=== PATIENT | male | born 1985 | race Two or more races ===

== ENCOUNTER 2016-09-05 03:02 | Emergency (ER) | payer OTHER ==
[2016-09-05 04:48] LABS: ABSOLUTE LYMPHOCYTES (AUTO) 1.1 10^3/uL (0.5-4.7); ABSOLUTE MONOCYTES (AUTO) 1.1 10^3/uL (0.1-1.4); ABSOLUTE NEUT (AUTO) 10.2 10^3/uL (1.7-8.2); BASOPHILS % (AUTO) 0.2 % (0-2); EOSINOPHILS % (AUTO) 0.1 % (0-6); HEMATOCRIT 39.6 % (37.9-51.0); HEMOGLOBIN 13.3 g/dL (13.5-17.0); HGB HCT DIFFERENCE 0.3; LYMPHOCYTES % (AUTO) 8.6 % (13-45); MEAN CORPUSCULAR HEMOGLOBIN 28.5 pg (27.0-33.4); MEAN CORPUSCULAR HGB CONC 33.6 g/dL (32.0-36.0); MEAN CORPUSCULAR VOLUME 85 fl (80-97); MONOCYTES % (AUTO) 8.7 % (3-13); RED BLOOD COUNT 4.67 10^6/uL (4.35-5.55); RED CELL DISTRIBUTION WIDTH 14.4 % (11.5-14.0); SEGMENTED NEUTROPHILS % (AUTO) 82.4 % (42-78); WHITE BLOOD COUNT 12.3 10^3/uL (4.0-10.5)
[2016-09-05 05:03] LABS: ALANINE AMINOTRANSFERASE 36 U/L (21-72); ALBUMIN 3.9 g/dL (3.5-5.0); ALKALINE PHOSPHATASE 57 U/L (38-126); ANION GAP 13 (5-19); ASPARTATE AMINO TRANSFERASE 31 U/L (17-59); BILIRUBIN,DIRECT 0.2 mg/dL (0.0-0.4); BLOOD UREA NITROGEN 20 mg/dL (7-20); CALCIUM 9.3 mg/dL (8.4-10.2); CARBON DIOXIDE 27 mmol/L (22-30); CHLORIDE 102 mmol/L (98-107); CREATININE RESULT 1.06 mg/dL (0.52-1.25); GLUCOSE 117 mg/dL (75-110); POTASSIUM 4.8 mmol/L (3.6-5.0); SODIUM 142.3 mmol/L (137-145)
[2016-09-05 06:03] LABS: AMORPHOUS SEDIMENT,URINE 4+ /HPF; APPEARANCE,URINE TURBID; BILIRUBIN,URINE NEGATIVE (NEGATIVE); GLUCOSE, URINE NEGATIVE (NEGATIVE); KETONES,URINE NEGATIVE (NEGATIVE); LEUKOCYTE ESTERASE,URINE NEGATIVE (NEGATIVE); NITRITE,URINE NEGATIVE (NEGATIVE); PROTEIN,URINE NEGATIVE (NEGATIVE); URINE SPECIFIC GRAVITY 1.032; UROBILINOGEN,URINE NEGATIVE mg/dL (<2.0)
[2016-09-05] MEDS ORDERED: ACETAMINOPHEN 325 MG TABLET PO ONE (07:50)
[2016-09-05] MEDS ORDERED: NORMAL SALINE 1000 ML 1,000 ML IV ONE (07:50)
[2016-09-05] MEDS ORDERED: METRONIDAZOLE 500 MG/NS RTU 100 ML IV ONE (07:51)
--- NOTE | 2016-09-05 10:42 | ER Document Report ---
ED General - General Chief Complaint: Diarrhea Stated Complaint: NAUSEA, SHORTNESS OF BREATH - HPI Patient complains to provider of: diarrhea lower abdominal pain Notes: Patient coming in with diarrhea lower Yamilet pain left lower quadrant fevers nausea ongoing for the past 3 days. Patient states try to have bowel movement as well as has difficulty. Denies any recent antibiotics denies any recent travel denies any new pets but does state he does have a dog at home. - Related Data Allergies/Adverse Reactions: No Known Allergies Allergy (Unverified 09/05/16 03:19) Past Medical History - Social History Smoking Status: Unknown if Ever Smoked Chew tobacco use (# tins/day): No Frequency of alcohol use: None Drug Abuse: None Family History: Reviewed & Not Pertinent Patient has suicidal ideation: No Patient has homicidal ideation: No Renal/ Medical History: Denies: Hx Peritoneal Dialysis Past Surgical History: Reports: Hx Orthopedic Surgery - [facility] Review of Systems - Review of Systems Constitutional: No symptoms reported EENT: No symptoms reported Cardiovascular: No symptoms reported Respiratory: No symptoms reported Gastrointestinal: Abdominal pain, Nausea, Vomiting Genitourinary: No symptoms reported Male Genitourinary: No symptoms reported Musculoskeletal: No symptoms reported Skin: No symptoms reported Hematologic/Lymphatic: No symptoms reported Neurological/Psychological: No symptoms reported -: Yes All other systems reviewed and negative Physical Exam - Vital signs Vitals: Temp Pulse Resp BP Pulse Ox 100.3 F 98 21 H 110/71 100 09/05/16 03:21 09/05/16 03:21 09/05/16 03:21 09/05/16 03:21 09/05/16 03:21 Interpretation: Normal - General General appearance: Appears well, Alert - HEENT Head: Normocephalic, Atraumatic Eyes: Normal Pupils: PERRL - Respiratory Respiratory status: No respiratory distress Chest status: Nontender Breath sounds: Normal Chest palpation: Normal - Cardiovascular Rhythm: Regular Heart sounds: Normal auscultation Murmur: No - Abdominal Inspection: Normal Distension: No distension Bowel sounds: Normal Tenderness: Tender - Left lower quadrant tenderness moderate tenderness voluntary guarding no rebound Organomegaly: No organomegaly - Back Back: Normal, Nontender - Extremities General upper extremity: Normal inspection, Nontender, Normal color, Normal ROM , Normal temperature General lower extremity: Normal inspection, Nontender, Normal color, Normal ROM , Normal temperature, Normal weight bearing. No: Vipul's sign - Neurological Neuro grossly intact: Yes Cognition: Normal Orientation: AAOx4 Nicky Coma Scale Eye Opening: Spontaneous Nicky Coma Scale Verbal: Oriented Nicky Coma Scale Motor: Obeys Commands Alcova Coma Scale Total: 15 Speech: Normal Motor strength normal: LUE, RUE, LLE, RLE Sensory: Normal - Psychological Associated symptoms: Normal affect, Normal mood - Skin Skin Temperature: Warm Skin Moisture: Dry Skin Color: Normal Course - Re-evaluation Re-evalutation: 09/05/16 14:32 Patient stool studies do show signs of C. difficile with CAT scan showing diffuse colitis left lower quadrant of abscess formation. Patient will be started on Flagyl patient is able tolerate by mouth. Patient will be given pain medication patient was educated about C. difficile colitis patient was instructed to return if symptoms worsen. Patient states understanding at this time was to be stable for discharge home. - Vital Signs Vital signs: Temp Pulse Resp BP Pulse Ox 99.1 F 77 18 116/61 99 09/05/16 10:57 09/05/16 10:57 09/05/16 10:57 09/05/16 10:57 09/05/16 10:57 - Laboratory Result Diagrams: 09/05/16 04:24 09/05/16 04:24 Laboratory results interpreted by me: 09/05/16 09/05/16 04:24 04:24 WBC 12.3 H Hgb 13.3 L RDW 14.4 H Seg Neutrophils % 82.4 H Lymphocytes % 8.6 L Absolute Neutrophils 10.2 H Glucose 117 H Discharge - Discharge Clinical Impression: C. difficile colitis Condition: Good Disposition: HOME, SELF-CARE Instructions: C. (Clostridium) Difficile Infection ([facility]), Metronidazole ([facility]), Oral Narcotic Medication ([facility]), Fever ([facility]) Additional Instructions: Take medications as prescribed. Return to ER symptoms worsen. Follow-up with your primary care physician. I would highly recommend sticking to a bland diet for the next few day. He may also follow a brat diet. I would suggest eating yogurt to help reintroduce healthy bacteria to your gut Prescriptions: Metronidazole [Flagyl 500 mg Tablet] 500 mg PO Q6H #40 tablet Ondansetron [Zofran Odt 4 mg Tablet] 1 - 2 tab PO Q4H PRN #30 tab.rapdis PRN Reason: For Nausea/Vomiting Promethazine HCl [Phenergan 25 mg Tablet] 1 - 2 tab PO Q6H PRN #30 tablet PRN Reason: Tramadol HCl [Ultram 50 mg Tablet] 50 mg PO ASDIR PRN #30 tablet PRN Reason: Forms: Return to Work
[2016-09-05 11:19] VITALS: BP 116/61
== END 2016-09-05 10:58 | disposition home or self-care (01) ==
LOC: ER 03:02
DX: A04.7 Enterocolitis due to Clostridium difficile (principal); R19.7 Diarrhea, unspecified; R11.0 Nausea; R06.02 Shortness of breath; R10.32 Left lower quadrant pain
CPT/HCPCS: 99284; 96365; 36415; 87040; 87045; 89055; 87205; 85025; 82272; 80053; 81001; 87493 ×2; 74177; J7030

== ENCOUNTER 2017-01-22 15:08 | Inpatient (IN) | payer OTHER ==
[2017-01-22] MEDS ORDERED: ONDANSETRON HCL INJ/PF 4 MG/2 ML SDV IV ONE (15:50)
--- NOTE | 2017-01-22 15:53 | ER Document Report ---
ED Medical Screen (RME) - General Chief Complaint: Nausea/Vomiting/Diarrhea Stated Complaint: ABDOMINAL PAIN,FEVER,DIARRHEA Time Seen by Provider: 01/22/17 15:50 Notes: Patient states she has had 4 days of fevers up to 103 at home. He has had decreased appetite. No vomiting. He has had increased stool with mucus from his rectum. He also states he has had diffuse abdominal pain. He has been unable to sleep because of the pain. 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 He states he did have C. difficile earlier in the year. He is unsure how he contacted this. But he states he was stationed in the same place that he recently has been back to. He denies any recent antibiotics. TRAVEL OUTSIDE OF THE [place] IN LAST 30 DAYS: No - Related Data Allergies/Adverse Reactions: No Known Allergies Allergy (Verified 01/22/17 15:12) Past Medical History - Social History Frequency of alcohol use: Rare Drug Abuse: None Renal/ Medical History: Denies: Hx Peritoneal Dialysis Past Surgical History: Reports: Hx Orthopedic Surgery - [facility] Physical Exam - Vital signs Vitals: Temp Pulse BP Pulse Ox 99.9 F 92 134/74 H 96 01/22/17 15:14 01/22/17 15:14 01/22/17 15:14 01/22/17 15:14 Course - Vital Signs Vital signs: Temp Pulse Resp BP Pulse Ox 99.9 F 92 134/74 H 96 01/22/17 15:14 01/22/17 15:14 01/22/17 15:14 01/22/17 15:14
[2017-01-22 16:14] LABS: ABSOLUTE LYMPHOCYTES (AUTO) 1.7 10^3/uL (0.5-4.7); ABSOLUTE NEUT (AUTO) 8.6 10^3/uL (1.7-8.2); BASOPHILS % (AUTO) 0.3 % (0-2); EOSINOPHILS % (AUTO) 0.4 % (0-6); HEMATOCRIT 42.3 % (37.9-51.0); HEMOGLOBIN 13.9 g/dL (13.5-17.0); HGB HCT DIFFERENCE -0.6; LYMPHOCYTES % (AUTO) 14.7 % (13-45); MEAN CORPUSCULAR HEMOGLOBIN 29.5 pg (27.0-33.4); MEAN CORPUSCULAR VOLUME 90 fl (80-97); MONOCYTES % (AUTO) 8.8 % (3-13); RED BLOOD COUNT 4.72 10^6/uL (4.35-5.55); RED CELL DISTRIBUTION WIDTH 14.1 % (11.5-14.0); SEGMENTED NEUTROPHILS % (AUTO) 75.8 % (42-78); WHITE BLOOD COUNT 11.3 10^3/uL (4.0-10.5)
[2017-01-22 16:16] LABS: APPEARANCE,URINE CLEAR; BILIRUBIN,URINE NEGATIVE (NEGATIVE); GLUCOSE, URINE NEGATIVE (NEGATIVE); KETONES,URINE NEGATIVE (NEGATIVE); LEUKOCYTE ESTERASE,URINE NEGATIVE (NEGATIVE); NITRITE,URINE NEGATIVE (NEGATIVE); PROTEIN,URINE NEGATIVE (NEGATIVE); URINE SPECIFIC GRAVITY 1.018; UROBILINOGEN,URINE NEGATIVE mg/dL (<2.0)
[2017-01-22 16:33] LABS: ALANINE AMINOTRANSFERASE 49 U/L (21-72); ALBUMIN 3.8 g/dL (3.5-5.0); ALKALINE PHOSPHATASE 56 U/L (38-126); ANION GAP 10 (5-19); ASPARTATE AMINO TRANSFERASE 33 U/L (17-59); BILIRUBIN,DIRECT 0.4 mg/dL (0.0-0.4); BILIRUBIN,TOTAL 0.6 mg/dL (0.2-1.3); BLOOD UREA NITROGEN 16 mg/dL (7-20); CALCIUM 9.1 mg/dL (8.4-10.2); CARBON DIOXIDE 30 mmol/L (22-30); CHLORIDE 100 mmol/L (98-107); CREATININE RESULT 1.19 mg/dL (0.52-1.25); GLUCOSE 89 mg/dL (75-110); LIPASE 95.1 U/L (23-300); POTASSIUM 4.4 mmol/L (3.6-5.0); SODIUM 140.2 mmol/L (137-145); TOTAL PROTEIN 7.1 g/dL (6.3-8.2)
--- NOTE | 2017-01-22 17:14 | RADIOLOGY REPORT (SQ) ---
EXAM DESCRIPTION: CT ABD/PELVIS WITH IV ONLY COMPLETED DATE/TIME: 01/22/2017 4:41 pm REASON FOR STUDY: diffuse abd pain/hx c diff COMPARISON: 09/05/2016 TECHNIQUE: CT scan of the abdomen and pelvis performed using helical scanning technique with dynamic intravenous contrast injection. No oral contrast. Images reviewed with lung, soft tissue, and bone windows. Reconstructed coronal and sagittal MPR images reviewed. Delayed images for evaluation of the urinary system also acquired. All images stored on PACS. All CT scanners at this facility use dose modulation, iterative reconstruction, and/or weight based d osing when appropriate to reduce radiation dose to as low as reasonably achievable (ALARA). [facility]: Dose Right [facility]: CareDose [facility]: Dose Right [facility]: Teradose 4D [facility]: IIIMOBI CONTRAST TYPE AND DOSE: contrast/concentration: Isovue 370.00 mg/ml; Total Contrast Delivered: 86.0 ml; Total Saline Delivered: 69.0 ml RENAL FUNCTION: None required. The patient is less than 50 years old. RADIATION DOSE: Up-to-date CT equipment and radiation dose reduction techniques were employed. CTDIv ol: 5.9 - 8.1 mGy. DLP: 722 mGy-cm.. LIMITATIONS: None. FINDINGS: LOWER CHEST: No significant findings. No nodules or infiltrates. LIVER: Normal size. No masses. No dilated ducts. SPLEEN: Normal size. No focal lesions. PANCREAS: No masses. No significant calcifications. No adjacent inflammation or peripancreatic fluid collections. Pancreatic duct not dilated. GALLBLADDER: No identified stones by CT criteria. No inflammatory changes to suggest cholecystitis. ADRENAL GLANDS: No significant masses or asymmetry. RIGHT KIDNEY AND URETER: No solid masses. No significant calcifications. No hydronephrosis or hyd roureter. LEFT KIDNEY AND URETER: No solid masses. No significant calcifications. No hydronephrosis or hydr oureter. AORTA AND VESSELS: No aneurysm. No dissection. Renal arteries, SMA, celiac without stenosis. RETROPERITONEUM: No retroperitoneal adenopathy, hemorrhage or masses. BOWEL AND PERITONEAL CAVITY: Focal inflammatory change involving the descending colon in the setting of diverticula compatible with diverticulitis. There is a a 19 mm contained gas and fluid collection along the anti mesenteric border consistent with a contained perforation. Small and large bowel loo ps normal no free air. APPENDIX: Normal. PELVIS: No mass. No free fluid. Normal bladder. ABDOMINAL WALL: No masses. No hernias. BONES: No significant or acute findings. OTHER: No other significant finding. IMPRESSION: ACUTE DIVERTICULITIS DESCENDING COLON WITH 19 MM CONTAINED PERFORATION WHICH IS NOT AMEN ABLE TO IMAGE GUIDED DRAINAGE. TECHNICAL DOCUMENTATION: JOB ID: [id number] Quality ID # [id number]: Final reports with documentation of one or more dose reduction techniques (e.g., Au tomated exposure control, adjustment of the mA and/or kV according to patient size, use of iterative reconstruction technique) 2010 [employer]- All Rights Reserved
[2017-01-22] MEDS ORDERED: PIPERACILLIN/TAZOBACTAM 3.375 GM VIAL IV ONE (17:26)
--- NOTE | 2017-01-22 17:29 | ER Document Report ---
ED GI/ - General Chief Complaint: Nausea/Vomiting/Diarrhea Stated Complaint: ABDOMINAL PAIN,FEVER,DIARRHEA Time Seen by Provider: 01/22/17 15:50 Notes: Patient is here complaining of abdominal pain that started in his lower abdomen on Saturday. It has continued over the weekend. He has been nauseated but not vomiting. He has frequent stools normally and has been worked up and told he may have IBS. His stools have not changed with this illness. He has noted fever for the last couple of days. Patient was also diagnosed and treated for C. difficile colitis back in the spring. He has never had any abdominal surgeries. Not currently on any current medications. TRAVEL OUTSIDE OF THE [place] IN LAST 30 DAYS: No - Related Data Allergies/Adverse Reactions: No Known Allergies Allergy (Verified 01/22/17 15:12) Past Medical History - Social History Smoking Status: Former Smoker Frequency of alcohol use: Rare Drug Abuse: None Family History: Reviewed & Not Pertinent Patient has suicidal ideation: No Patient has homicidal ideation: No GI Medical History: Reports: Hx Irritable Bowel - Possible Past Surgical History: Reports: Hx Orthopedic Surgery - [facility] Review of Systems - Review of Systems Notes: REVIEW OF SYSTEMS: CONSTITUTIONAL : Denies fever. EENT: Denies eye, ear, nose or mouth or throat pain or other symptoms. CARDIOVASCULAR: Denies chest pain. RESPIRATORY: Denies cough, chest congestion, or shortness of breath. GASTROINTESTINAL: See HPI. GENITOURINARY: Denies difficulty or painful urinating, urinary frequency, blood in urine. MUSCULOSKELETAL: Denies back or neck pain. Denies joint pain or swelling. SKIN: Denies rash or skin lesions. NEUROLOGICAL: Denies LOC or altered mental status. Denies headache. Denies sensory loss or motor deficits. ALL OTHER SYSTEMS REVIEWED AND NEGATIVE. Physical Exam - Vital signs Vitals: Temp Pulse BP Pulse Ox 99.9 F 92 134/74 H 96 01/22/17 15:14 01/22/17 15:14 01/22/17 15:14 01/22/17 15:14 Interpretation: Febrile - Low-grade - Notes Notes: PHYSICAL EXAMINATION: GENERAL: Well-appearing, in no acute distress. Vital signs are normal except for very slight 1 fever. HEAD: Atraumatic, normocephalic. NECK: Normal range of motion, supple. LUNGS: Breath sounds clear and equal bilaterally. HEART: Regular rate and rhythm without murmurs. ABDOMEN: Soft, tender in left lower quadrant, but none in the right lower quadrant. Slight guarding but no rebound present. No masses felt. Bowel sounds are heard.. BACK: No tenderness throughout entire back. EXTREMITIES: Normal range of motion without pain. NEUROLOGICAL: Normal speech, normal gait. Normal sensory, motor, and reflex exams. Awake, alert, and oriented x3. Cranial nerves normal. SKIN: Warm, dry, no rashes. Course - Re-evaluation Re-evalutation: 01/22/17 17:[address] Lyles, hospitalist certified pest control technician, and he will admit the patient. - Vital Signs Vital signs: Temp Pulse Resp BP Pulse Ox 98.7 F 86 18 116/67 98 01/22/17 17:00 01/22/17 17:00 01/22/17 17:00 01/22/17 17:00 01/22/17 17:00 - Laboratory Result Diagrams: 01/22/17 15:50 01/22/17 15:50 Laboratory results interpreted by me: 01/22/17 01/22/17 15:50 15:50 WBC 11.3 H RDW 14.1 H Absolute Neutrophils 8.6 H Urine Ascorbic Acid 40 H - Diagnostic Test Radiology reviewed: Image reviewed, Reports reviewed - CT scan of the abdomen shows diverticulitis of the descending colon with a 19 mm area of contained perforation. Discharge - Discharge Clinical Impression: Diverticulitis large intestine w/o perforation or abscess w/bleeding Condition: Stable Disposition: ADMITTED INPATIENT Admitting Provider: Hospitalist Unit Admitted: [facility]
[2017-01-22] MEDS ORDERED: MORPHINE SULFATE 10 MG/ML INJ IV ONE (17:50)
--- NOTE | 2017-01-22 18:06 | PDOC H&P ---
History of Present Illness Patient complains of: Lower abdominal pain History of Present Illness: OSVALDO RUELAS is a 31 year old male Patient is here complaining of abdominal pain that started in his lower abdomen on Saturday. It has continued over the weekend. He has been nauseated but not vomiting. He has frequent stools normally and has been worked up and told he may have IBS. His stools have not changed with this illness. He has noted fever for the last couple of days. Patient was also diagnosed and treated for C. difficilis colitis back in the spring in September treated with oral Flagyl and resolution of the symptoms. He has never had any abdominal surgeries. Not currently on any current medications. A CT scan A/P has been done today and it is significant for localized perforated sigmoid diverticulitits. Past Medical History Infectious History Note: C. Difficilis colitis September 2016 Past Surgical History Past Surgical History: Left knee arthroscopy Past Surgical History: Reports: Orthopedic Surgery - [facility] Social History Smoking Status: Former Smoker Family History Family History: Reviewed & Not Pertinent Parental Family History Reviewed: Yes - none Children Family History Reviewed: No Sibling(s) Family History Reviewed.: Yes - none Medication/Allergy Home Medications: Metronidazole [Flagyl 500 mg Tablet] 500 mg PO Q6H #40 tablet 09/05/16 Ondansetron [Zofran Odt 4 mg Tablet] 1 - 2 tab PO Q4H PRN #30 tab.rapdis Promethazine HCl [Phenergan 25 mg Tablet] 1 - 2 tab PO Q6H PRN #30 tablet Tramadol HCl [Ultram 50 mg Tablet] 50 mg PO ASDIR PRN #30 tablet 09/05/16 Allergies/Adverse Reactions: No Known Allergies Allergy (Verified 01/22/17 15:12) Physical Exam Vital Signs: Temp Pulse Resp BP Pulse Ox 98.7 F 86 18 116/67 98 01/22/17 17:00 01/22/17 17:00 01/22/17 17:00 01/22/17 17:00 01/22/17 17:00 Intake & Output 01/21/17 01/22/17 01/23/17 06:59 06:59 06:59 Weight 80 kg Results Laboratory Results: 01/22/17 15:50 01/22/17 15:50 01/22/17 01/22/1717 15:50 15:50 15:50 WBC 11.3 H RBC 4.72 Hgb 13.9 Hct 42.3 MCV 90 MCH 29.5 MCHC 33.0 RDW 14.1 H Plt Count 303 Seg Neutrophils % 75.8 Lymphocytes % 14.7 Monocytes % 8.8 Eosinophils % 0.4 Basophils % 0.3 Absolute Neutrophils 8.6 H Absolute Lymphocytes 1.7 Absolute Monocytes 1.0 Absolute Eosinophils 0.0 Absolute Basophils 0.0 Sodium 140.2 Potassium 4.4 Chloride 100 Carbon Dioxide 30 Anion Gap 10 BUN 16 Creatinine 1.19 Est GFR ( Amer) > 60 Est GFR (Non-Af Amer) > 60 Glucose 89 Calcium 9.1 Total Bilirubin 0.6 AST 33 ALT 49 Alkaline Phosphatase 56 Total Protein 7.1 Albumin 3.8 Lipase 95.1 Urine Color YELLOW Urine Appearance CLEAR Urine pH 6.0 Ur Specific [place] 1.018 Urine Protein NEGATIVE Urine Glucose (UA) NEGATIVE Urine Ketones NEGATIVE Urine Blood NEGATIVE Urine Nitrite NEGATIVE Ur Leukocyte Esterase NEGATIVE Urine WBC (Auto) 1 Impressions: Abdomen/Pelvis CT 01/22/17 15:50 IMPRESSION: ACUTE DIVERTICULITIS DESCENDING COLON WITH 19 MM CONTAINED PERFORATION WHICH IS NOT AMENABLE TO IMAGE GUIDED DRAINAGE. Assessment & Plan - Plan Summary Plan Summary: A/ Abdominal pain, fever x [address] scan abdomen and pelvis significant for localized, contained signoid diverticulitis with 1.9 cm abscess Hx of chronic diarrhea since [place] from [place] (@ 20 BM/day) P/ Admit NPO IVF NS IV Abx (Zosyn 3.375 gr IV q6) Stools for Cx, O&P. C. Difficilis toxin, WBC Patient will need to undergo colonoscopy in 3 months
[2017-01-22] MEDS: NORMAL SALINE 1000 ML 1,000 ML IV PRN (18:16)
[2017-01-22] MEDS ORDERED: NORMAL SALINE 1000 ML 1,000 ML IV PRN (23:29)
[2017-01-23] MEDS: MORPHINE SULFATE 10 MG/ML INJ INJ PRN ×3 (00:14→08:31)
[2017-01-23] MEDS: METRONIDAZOLE 500 MG/NS RTU 100 ML IV SCH ×5 (00:14→23:22)
[2017-01-23] MEDS ORDERED: PIPERACILLIN/TAZOBACTAM 3.375 GM VIAL IV ONE (02:06)
[2017-01-23] MEDS: PIPERACILLIN/TAZOBACTAM 3.375 GM VIAL IV SCH ×2 (02:28→06:51)
[2017-01-23] MEDS ORDERED: VANCOMYCIN HCL INJ 500 MG VIAL ONE (02:31)
[2017-01-23] MEDS: VANCOMYCIN HCL INJ 500 MG VIAL PO SCH ×3 (02:43→17:44)
[2017-01-23 05:18] LABS: HEMATOCRIT 35.9 % (37.9-51.0); HGB HCT DIFFERENCE 0.1; MEAN CORPUSCULAR HEMOGLOBIN 29.8 pg (27.0-33.4); MEAN CORPUSCULAR HGB CONC 33.5 g/dL (32.0-36.0); MEAN CORPUSCULAR VOLUME 89 fl (80-97); RED BLOOD COUNT 4.04 10^6/uL (4.35-5.55); RED CELL DISTRIBUTION WIDTH 14.3 % (11.5-14.0); WHITE BLOOD COUNT 8.7 10^3/uL (4.0-10.5)
--- NOTE | 2017-01-23 10:08 | PDOC PROGRESS REPORT ---
Subjective Progress Note for:: 01/23/17 Subjective:: No diarrhea. Feels a little better but still having left lower quadrant abdominal pain. Physical Exam Vital Signs: Temp Pulse Resp BP Pulse Ox 98.4 F 71 18 117/65 98 01/23/17 07:52 01/23/17 07:52 01/23/17 07:52 01/23/17 07:52 01/23/17 07:52 Intake & Output 01/22/17 01/23/17 01/24/17 06:59 06:59 06:59 Intake Total 1850 Output Total 401 Balance 1449 Weight 81.1 kg General appearance: PRESENT: no acute distress, cooperative Respiratory exam: PRESENT: clear to auscultation kindra Cardiovascular exam: PRESENT: RRR GI/Abdominal exam: PRESENT: other - Soft, nondistended, focal tenderness to palpation the left lower quadrant without peritoneal signs. Mild diffuse abdominal tenderness. Results Laboratory Results: 01/23/17 04:24 01/23/17 04:24 WBC 8.7 RBC 4.04 L Hgb 12.0 L Hct 35.9 L MCV 89 MCH 29.8 MCHC 33.5 RDW 14.3 H Plt Count 248 Impressions: Abdomen/Pelvis CT 01/22/17 15:50 IMPRESSION: ACUTE DIVERTICULITIS DESCENDING COLON WITH 19 MM CONTAINED PERFORATION WHICH IS NOT AMENABLE TO IMAGE GUIDED DRAINAGE. Assessment & Plan - Diagnosis (1) Diverticulitis Qualifiers: Diverticulitis site: large intestine Diverticulitis complication: with perforation Is this a current diagnosis for this admission?: Yes Plan: Diverticulitis with a contained perforation. Responding to antibiotics. Patient unfortunately has a history of C. difficile colitis and his C. difficile toxin is positive. Patient is on p.o. vancomycin and IV Flagyl and IV Zosyn. Will ask gastroenterology consult for their input. Patient has chronic diarrhea for multiple years and uncertain whether he has had a complete gastroenterology workup for this problem. Hopefully his diverticulitis will improve with antibiotics. In light of the complicated nature of his diverticulitis he would benefit from a semi-elective surgery even if he does have improvement. However would like complete gastroenterology workup and clearance of his C. difficile colitis prior to his semi-elective partial colon resection. Keep at bowel rest until tenderness is markedly improved. Encourage ambulation.
[2017-01-23] MEDS: NORMAL SALINE 1000 ML 1,000 ML IV PRN ×2 (10:57→20:57)
[2017-01-23] MEDS: ENOXAPARIN SODIUM INJ 40 MG/0.4 ML DISP.SYRIN SUBCUT SCH (10:57)
[2017-01-23] MEDS: FAMOTIDINE INJ/PF 20 MG/2 ML SDV IV SCH ×2 (10:57→17:44)
[2017-01-23] MEDS: KETOROLAC TROMETHAMINE INJ/PF 30 MG/1 ML SDV IV PRN ×2 (10:57→21:13)
--- NOTE | 2017-01-23 11:10 | PDOC CONSULTATION ---
Consultation Consult Date: 01/23/17 Attending physician:: NICCI DELATORRE Consult reason:: Acute diverticulitis with contained perforation as documented on CT scan. C. difficile colitis History of Present Illness Admission Date/PCP: 01/22/17 18:12 History of Present Illness: Patient has been admitted under the surgical service. Patient had presented with left lower quadrant pain to the emergency room. On CT scan was noted to have a contained perforation in the area of the sigmoid. He does have C. difficile colitis. GI consultation is provided with respect to further treatment. Patient this point is not a candidate for colonoscopy due to his perforation. Dr. Shaffer has seen the patient and feels that elective surgery may be of benefit. However with the C. difficile colitis immediate surgery does not appear to be imminent. Patient is currently on oral vancomycin along with IV Flagyl patient is also on IV Zosyn for the treatment of the diverticulitis to cover gram-negative organisms. Current stool sample is positive for C. difficile. At this point treatment should continue for at least 21 days. In total at some point he may need surgery with respect to his vancomycin he can be on 125 mg p.o. 4 times daily, with respect to his IV Flagyl 500 mg IV 3 times daily. He should resolve his C. difficile; the reason for the extended treatment is to treat C. difficile spores which is the primary method of reproduction however if he needs surgery prior to that he should proceed. No colonoscopy can be done at this point. If the current regimen further treatment of C. difficile does not resolve the issue, then perhaps the use of Dificid can be attempted. Past Surgical History Past Surgical History: Reports: Orthopedic Surgery - [facility] Social History Smoking Status: Former Smoker Number of Years Smokin Frequency of Alcohol Use: Occasional Hx Recreational Drug Use: No Drugs: Other Hx Prescription Drug Abuse: No - Advance Directive Resuscitation Status: Full Code Family History Family History: Reviewed & Not Pertinent Parental Family History Reviewed: Yes Children Family History Reviewed: Unknown Sibling(s) Family History Reviewed.: Unknown Medication/Allergy Home Medications: No Home Medications 01/22/17 Allergies/Adverse Reactions: No Known Allergies Allergy (Verified 01/22/17 15:12) Review of Systems Constitutional: ABSENT: fever(s), headache(s), night sweats, weakness Eyes: ABSENT: visual disturbances Ears: ABSENT: hearing changes Nose, Mouth, and Throat: ABSENT: mouth pain, sore throat Cardiovascular: ABSENT: chest pain, edema, orthropnea, palpitations Respiratory: ABSENT: dyspnea, hemoptysis Gastrointestinal: PRESENT: abdominal pain, diarrhea. ABSENT: heartburn, hematemesis, hematochezia Genitourinary: ABSENT: dysuria, hematuria Musculoskeletal: ABSENT: deformity, joint swelling Integumentary: ABSENT: lesions, pruritus Neurological: ABSENT: syncope, tingling, tremor(s), vertigo Psychiatric: ABSENT: hallucinations Endocrine: ABSENT: polydipsia, polyphagia, polyuria Hematologic/Lymphatic: ABSENT: easy bruising Allergic/Immunologic: ABSENT: seasonal rhinorrhea Physical Exam Vital Signs: Temp Pulse Resp BP Pulse Ox 98.4 F 71 18 117/65 98 01/23/17 07:52 01/23/17 07:52 01/23/17 07:52 01/23/17 07:52 01/23/17 07:52 Intake & Output 01/22/17 01/23/17 01/24/17 06:59 06:59 06:59 Intake Total 1850 Output Total 401 Balance 1449 Weight 81.1 kg General appearance: PRESENT: no acute distress, well-developed, well-nourished Head exam: PRESENT: atraumatic, normocephalic Eye exam: PRESENT: EOMI, PERRLA. ABSENT: nystagmus, periorbital swelling, scleral icterus Mouth exam: PRESENT: moist, neck supple Throat exam: ABSENT: tonsillar exudate, tonsillogmegaly Neck exam: ABSENT: meningismus, tenderness, thyromegaly Respiratory exam: PRESENT: symmetrical, unlabored. ABSENT: tachypnea, wheezes Cardiovascular exam: PRESENT: RRR, +S1, +S2 Pulses: PRESENT: normal carotid pulses GI/Abdominal exam: PRESENT: soft, tenderness. ABSENT: Ray's sign Extremities exam: ABSENT: joint swelling Neurological exam: PRESENT: oriented to time, oriented to situation, reflexes normal, CN II-XII grossly intact Skin exam: PRESENT: normal color. ABSENT: mottled, pallor, petechiae, urticaria , vesicles Results Laboratory Results: 01/23/17 04:24 01/23/17 04:24 WBC 8.7 RBC 4.04 L Hgb 12.0 L Hct 35.9 L MCV 89 MCH 29.8 MCHC 33.5 RDW 14.3 H Plt Count 248 Impressions: Abdomen/Pelvis CT 01/22/17 15:50 IMPRESSION: ACUTE DIVERTICULITIS DESCENDING COLON WITH 19 MM CONTAINED PERFORATION WHICH IS NOT AMENABLE TO IMAGE GUIDED DRAINAGE. Assessment & Plan - Diagnosis (1) C. difficile colitis Plan: Treatment as noted. Combination of both oral vancomycin and IV Flagyl is suitable for this patient. However the typical treatment is between 14 and 21 days. At some point he will clear his C. difficile toxin. The length of treatment however is to treat gym and eating sports to reduce the risk of recurrent infection. As soon as he is cleared he can basically remain on the antibiotics but proceed for surgery if that is felt to be necessary. Patient cannot undergo colonoscopy at this point in time. Alternative treatment including Dificid may be attempted if there is no resolution. Patient can remain on the surgical service. (2) Diverticulitis large intestine w/o perforation or abscess w/bleeding Plan: Dr. Shaffer feels strongly that surgery may be of benefit to the patient. Check his stools in 2-3 days to make sure his C. difficile is cleared. Patient can then be taken to surgery and then resume treatment to complete treatment of 21 days. However the alternative is to wait for completion of treatment and then taken to surgery. However surgery was determined that. - Time Time Spent: 50 to 70 Minutes
[2017-01-23] MEDS ORDERED: PIPERACILLIN SODIUM/TAZOBACTAM 3.375 GM in NORMAL SALINE 100 ML IV ONE (13:00)
[2017-01-23] MEDS: PIPERACILLIN SODIUM/TAZOBACTAM 3.375 GM in NORMAL SALINE 100 ML IV SCH (17:46)
[2017-01-24] MEDS: PIPERACILLIN SODIUM/TAZOBACTAM 3.375 GM in NORMAL SALINE 100 ML IV SCH ×5 (00:43→23:31)
[2017-01-24] MEDS: VANCOMYCIN HCL INJ 500 MG VIAL PO SCH ×3 (01:05→18:27)
[2017-01-24 04:51] LABS: HEMATOCRIT 33.7 % (37.9-51.0); HEMOGLOBIN 11.5 g/dL (13.5-17.0); HGB HCT DIFFERENCE 0.8; MEAN CORPUSCULAR HEMOGLOBIN 29.9 pg (27.0-33.4); MEAN CORPUSCULAR VOLUME 88 fl (80-97); RED BLOOD COUNT 3.83 10^6/uL (4.35-5.55); RED CELL DISTRIBUTION WIDTH 14.5 % (11.5-14.0); WHITE BLOOD COUNT 5.5 10^3/uL (4.0-10.5)
[2017-01-24] MEDS: METRONIDAZOLE 500 MG/NS RTU 100 ML IV SCH ×3 (05:42→18:27)
[2017-01-24] MEDS: ENOXAPARIN SODIUM INJ 40 MG/0.4 ML DISP.SYRIN SUBCUT SCH (10:32)
[2017-01-24] MEDS: FAMOTIDINE INJ/PF 20 MG/2 ML SDV IV SCH ×2 (10:32→18:27)
--- NOTE | 2017-01-24 13:28 | PDOC PROGRESS REPORT ---
Subjective Progress Note for:: 01/24/17 Subjective:: He is without complaints at this time. Has not had any diarrhea. Has minimal pain in the left lower quadrant. Physical Exam Vital Signs: Temp Pulse Resp BP Pulse Ox 98.3 F 67 18 122/72 99 01/24/17 11:50 01/24/17 11:50 01/24/17 11:50 01/24/17 11:50 01/24/17 11:50 Intake & Output 01/23/17 01/24/17 01/25/17 06:59 06:59 06:59 Intake Total 1850 1950 Output Total 401 Balance 1449 1950 Weight 81.1 kg 83.7 kg General appearance: PRESENT: no acute distress GI/Abdominal exam: PRESENT: normal bowel sounds, soft, tenderness - Mild tenderness in the left lower quadrant, without guarding or rebound.. ABSENT: distended, guarding, mass, rebound, rigid Results Laboratory Results: 01/24/17 04:18 01/24/17 04:18 WBC 5.5 RBC 3.83 L Hgb 11.5 L Hct 33.7 L MCV 88 MCH 29.9 MCHC 34.0 RDW 14.5 H Plt Count 261 Impressions: Abdomen/Pelvis CT 01/22/17 15:50 IMPRESSION: ACUTE DIVERTICULITIS DESCENDING COLON WITH 19 MM CONTAINED PERFORATION WHICH IS NOT AMENABLE TO IMAGE GUIDED DRAINAGE. Assessment & Plan - Diagnosis (1) Diverticulitis Qualifiers: Diverticulitis site: large intestine Diverticulitis complication: with perforation Is this a current diagnosis for this admission?: Yes - Plan Summary Plan Summary: Start the patient on clear liquid diet, continue IV antibiotics. Had Long discussion with the patient regarding need for colonoscopy in 4-6 weeks post discharge. Will then need an elective sigmoid colectomy.
--- NOTE | 2017-01-24 14:44 | PDOC PROGRESS REPORT ---
Subjective Progress Note for:: 01/24/17 Subjective:: Patient did well overnight. He is having less abdominal pain. Surgery has seen him. 3 separate physicians from surgery have seen him. There seems to be a consensus that he will need to be treated for his C. difficile and completed treatment Proceed with colonoscopy at some point and then perhaps elective colectomy at that point in time. Patient denies any bleeding. He has no leukocytosis. Physical Exam Vital Signs: Temp Pulse Resp BP Pulse Ox 98.3 F 67 18 122/72 99 01/24/17 11:50 01/24/17 11:50 01/24/17 11:50 01/24/17 11:50 01/24/17 11:50 Intake & Output 01/23/17 01/24/17 01/25/17 06:59 06:59 06:59 Intake Total 1850 1950 Output Total 401 Balance 1449 1950 Weight 81.1 kg 83.7 kg General appearance: PRESENT: no acute distress, well-developed, well-nourished Head exam: PRESENT: atraumatic, normocephalic Eye exam: PRESENT: EOMI, PERRLA. ABSENT: nystagmus, periorbital swelling, scleral icterus Mouth exam: PRESENT: moist Throat exam: ABSENT: tonsillar exudate, tonsillogmegaly Neck exam: ABSENT: meningismus, tenderness, thyromegaly Respiratory exam: PRESENT: symmetrical, unlabored. ABSENT: tachypnea, wheezes Cardiovascular exam: PRESENT: RRR, +S1, +S2 Pulses: PRESENT: normal carotid pulses GI/Abdominal exam: PRESENT: soft. ABSENT: Ray's sign, rebound, rigid, tenderness Extremities exam: ABSENT: joint swelling Neurological exam: PRESENT: oriented to time, oriented to situation, CN II-XII grossly intact Psychiatric exam: PRESENT: appropriate affect Skin exam: PRESENT: normal color. ABSENT: mottled, pallor, petechiae, urticaria , vesicles Results Laboratory Results: 01/24/17 04:18 01/24/17 04:18 WBC 5.5 RBC 3.83 L Hgb 11.5 L Hct 33.7 L MCV 88 MCH 29.9 MCHC 34.0 RDW 14.5 H Plt Count 261 Impressions: Abdomen/Pelvis CT 01/22/17 15:50 IMPRESSION: ACUTE DIVERTICULITIS DESCENDING COLON WITH 19 MM CONTAINED PERFORATION WHICH IS NOT AMENABLE TO IMAGE GUIDED DRAINAGE. Assessment & Plan - Diagnosis (1) C. difficile colitis Plan: Complete treatment of C. difficile with oral vancomycin and once patient is able to to be advanced constriction to oral Flagyl as well for a three-week completion of therapy (2) Diverticulitis large intestine w/o perforation or abscess w/bleeding Plan: Surgery seems to indicate that they do not want to intervene at this point in time. Patient would certainly need a colonoscopy but it would have to be in at least 6 weeks. He should complete outpatient antibiotics in the meanwhile. Patient is aware that there is certainly a high risk of bleeding and perforation and therefore surgery will need to be coordinated fairly quickly following completion of colonoscopy. - Time Time Spent with patient: 25-34 minutes
[2017-01-24] MEDS: NORMAL SALINE 1000 ML 1,000 ML IV PRN (15:32)
[2017-01-24] MEDS: KETOROLAC TROMETHAMINE INJ/PF 30 MG/1 ML SDV IV PRN ×2 (15:42→23:55)
[2017-01-24] MEDS: ONDANSETRON HCL INJ/PF 4 MG/2 ML SDV IV PRN (23:55)
[2017-01-25] MEDS: METRONIDAZOLE 500 MG/NS RTU 100 ML IV SCH ×5 (00:12→23:09)
[2017-01-25] MEDS: VANCOMYCIN HCL INJ 500 MG VIAL PO SCH ×3 (01:07→18:30)
[2017-01-25 05:02] LABS: HEMATOCRIT 34.2 % (37.9-51.0); HEMOGLOBIN 11.5 g/dL (13.5-17.0); HGB HCT DIFFERENCE 0.3; MEAN CORPUSCULAR HEMOGLOBIN 29.8 pg (27.0-33.4); MEAN CORPUSCULAR HGB CONC 33.6 g/dL (32.0-36.0); MEAN CORPUSCULAR VOLUME 89 fl (80-97); RED BLOOD COUNT 3.85 10^6/uL (4.35-5.55); RED CELL DISTRIBUTION WIDTH 14.3 % (11.5-14.0); WHITE BLOOD COUNT 4.2 10^3/uL (4.0-10.5)
[2017-01-25] MEDS: KETOROLAC TROMETHAMINE INJ/PF 30 MG/1 ML SDV IV PRN ×2 (06:43→12:28)
[2017-01-25] MEDS: PIPERACILLIN SODIUM/TAZOBACTAM 3.375 GM in NORMAL SALINE 100 ML IV SCH ×4 (06:43→23:11)
[2017-01-25] MEDS: ONDANSETRON HCL INJ/PF 4 MG/2 ML SDV IV PRN ×2 (06:43→12:28)
[2017-01-25] MEDS: FAMOTIDINE INJ/PF 20 MG/2 ML SDV IV SCH ×2 (09:05→18:29)
[2017-01-25] MEDS: ENOXAPARIN SODIUM INJ 40 MG/0.4 ML DISP.SYRIN SUBCUT SCH (09:05)
--- NOTE | 2017-01-25 22:10 | PDOC PROGRESS REPORT ---
Subjective Progress Note for:: 01/25/17 Subjective:: Patient is without complaints. Had good bowel movements earlier today Physical Exam Vital Signs: Temp Pulse Resp BP Pulse Ox 97.7 F 63 16 120/76 98 01/25/17 20:00 01/25/17 20:00 01/25/17 20:00 01/25/17 20:00 01/25/17 20:00 Intake & Output 01/24/17 01/25/17 01/26/17 06:59 06:59 06:59 Intake Total 1950 2710 3153 Output Total 300 Balance 1950 2710 2853 Weight 83.7 kg 183 kg General appearance: PRESENT: no acute distress, cooperative GI/Abdominal exam: PRESENT: normal bowel sounds, soft. ABSENT: guarding, rebound, tenderness Results Laboratory Results: 01/25/17 04:06 01/25/17 04:06 WBC 4.2 RBC 3.85 L Hgb 11.5 L Hct 34.2 L MCV 89 MCH 29.8 MCHC 33.6 RDW 14.3 H Plt Count 267 Impressions: Abdomen/Pelvis CT 01/22/17 15:50 IMPRESSION: ACUTE DIVERTICULITIS DESCENDING COLON WITH 19 MM CONTAINED PERFORATION WHICH IS NOT AMENABLE TO IMAGE GUIDED DRAINAGE. Assessment & Plan - Diagnosis (1) Diverticulitis Qualifiers: Diverticulitis site: large intestine Diverticulitis complication: with perforation Is this a current diagnosis for this admission?: Yes - Plan Summary Plan Summary: Patient's diet has been advanced to low residue diet. Will plan for discharge home in the morning, on the recommended antibiotic regimen for C. difficile. Patient will need colonoscopy in 4-6 weeks, followed by elective colectomy.
[2017-01-25] MEDS: NORMAL SALINE 1000 ML 1,000 ML IV PRN (23:11)
[2017-01-26] MEDS: VANCOMYCIN HCL INJ 500 MG VIAL PO SCH ×2 (02:33→11:04)
[2017-01-26 04:51] LABS: HEMATOCRIT 34.4 % (37.9-51.0); HEMOGLOBIN 11.4 g/dL (13.5-17.0); HGB HCT DIFFERENCE -0.2; MEAN CORPUSCULAR HEMOGLOBIN 29.3 pg (27.0-33.4); MEAN CORPUSCULAR HGB CONC 33.3 g/dL (32.0-36.0); MEAN CORPUSCULAR VOLUME 88 fl (80-97); RED BLOOD COUNT 3.91 10^6/uL (4.35-5.55); RED CELL DISTRIBUTION WIDTH 15.1 % (11.5-14.0); WHITE BLOOD COUNT 3.8 10^3/uL (4.0-10.5)
[2017-01-26] MEDS: METRONIDAZOLE 500 MG/NS RTU 100 ML IV SCH (06:12)
[2017-01-26] MEDS: PIPERACILLIN SODIUM/TAZOBACTAM 3.375 GM in NORMAL SALINE 100 ML IV SCH (06:12)
[2017-01-26] MEDS: ENOXAPARIN SODIUM INJ 40 MG/0.4 ML DISP.SYRIN SUBCUT SCH (10:49)
[2017-01-26] MEDS: FAMOTIDINE INJ/PF 20 MG/2 ML SDV IV SCH (10:50)
--- NOTE | 2017-01-26 11:27 | DISCHARGE SUMMARY E ---
Discharge Summary NAME: OSVALDO RUELAS : 1985 AGE: 31Y ADMITTED: 01/22/2017 DISCHARGED: 01/26/2017 DISCHARGE DIAGNOSES: Contained perforated sigmoid diverticulitis and C. difficile pseudomembranous colitis. DISCHARGE STATUS: Stable. HISTORY OF PRESENT ILLNESS: This 31-year-old male was admitted on 01/22/2017 because of low abdominal pain that had started several days earlier. Patient had been nauseated without vomiting and had diarrhea. The patient was noted to have C. difficile back in the spring of September 2016 and was treated with oral Flagyl with resolution of the symptoms. However, he is currently complaining of abdominal pain. Patient underwent CT scan of the abdomen which revealed a perforated contained localized sigmoid diverticulitis. Patient was started on IV antibiotics which included Flagyl and Zosyn. Patient was also started on vancomycin IV piggyback. The patient's perforated diverticulitis was localized and contained without evidence of free air and there was no abscess for percutaneous drainage. Patient had continued improvement on antibiotic therapy with diminution of his left lower quadrant tenderness. After 48 hours, patient was significantly improved. Patient was then started on clear liquid diet which was then advanced to low residue diet which he tolerated well. Patient remained afebrile and his white count was normal. Patient is doing quite well at this time. He is tolerating his diet and has had soft stools daily. Patient will be scheduled for a colonoscopy in 4-6 weeks followed by elective sigmoid colectomy. Patient will be referred to Dr. De La Paz for that reason. Patient will be scheduled to follow Dr. De La Paz in 7-10 days and he will undergo colonoscopy and elective sigmoid resection at the discretion of Dr. De La Paz. DICTATING PHYSICIAN: SAMANTHA SIMPSON M.D. [id number] PHY#: [id number] ID: [id number] JOB#: [id number] ACCT: [id number] cc:OCTAVIO ARNOLD M.D., SAMANTHA Erwin >
[2017-01-26 11:38] VITALS: BP 112/71
== END 2017-01-26 11:54 | disposition home or self-care (01) | DRG 372 ==
LOC: ER 15:08 → UNDOADMIN 18:09 → EH 18:09 → 4N 20:56
PROVIDERS: ADMIT Surgery; ATTEND Surgery
DX: A04.7 Enterocolitis due to Clostridium difficile (principal); K57.20 Diverticulitis of large intestine with perforation and abscess without bleeding
CPT/HCPCS: 36415; 74177; 80053; 81001; 83690; 85025; 85027; 87493; 96374; 96375; 99285; J1650; J1885; J2270; J2405; J2543; J3370; J7030; S0028

== ENCOUNTER 2017-02-28 09:47 | Day surgery (SDC) | payer OTHER ==
[2017-02-28] MEDS ORDERED: NALOXONE HCL INJ/PF 0.4 MG/1 ML SDV ONE (10:31)
[2017-02-28] MEDS ORDERED: GLYCOPYRROLATE INJ 0.4 MG/2 ML VIAL ONE (10:31)
[2017-02-28] MEDS ORDERED: ONDANSETRON HCL INJ/PF 4 MG/2 ML SDV ONE (10:31)
[2017-02-28] MEDS ORDERED: EPINEPHRINE INJ 1 MG/10 ML DISP.SYRIN ONE (10:32)
[2017-02-28] MEDS ORDERED: GLUCAGON,HUMAN RECOMB 1 MG INJ ONE (10:32)
[2017-02-28] MEDS ORDERED: FLUMAZENIL INJ 0.5 MG/5 ML VIAL ONE (10:32)
[2017-02-28] MEDS ORDERED: FENTANYL CITRATE INJ/PF 100 MCG/2 ML AMPUL ONE (10:32)
[2017-02-28] MEDS: MIDAZOLAM 2 MG/2 ML INJ ONE ×4 (11:05→11:19)
--- NOTE | 2017-02-28 11:46 | Operative Report ---
Operative Report DATE OF SURGERY: 02/28/17 PREOPERATIVE DIAGNOSIS: Personal history of Clostridium difficile colitis POSTOPERATIVE DIAGNOSIS: Same with auditory lesions of the colon OPERATION: 1. Total colonoscopy to cecum. 2. Multiple biopsies of sigmoid colon. SURGEON: NOAH JOHNSON ANESTHESIA: Moderate Sedation TISSUE REMOVED OR ALTERED: Colonic biopsies COMPLICATIONS: None ESTIMATED BLOOD LOSS: Scant INTRAOPERATIVE FINDINGS: See below PROCEDURE: Obtaining informed consent the patient was taken from the preoperative holding area to the main endoscopy suite where monitoring devices were attached to the patient. Plan and surgical timeout were conducted The patient was placed in the left lateral decubitus position with knees to chest. A perianal examination was performed. There was no visible or palpable anorectal pathology. Sphincter tone was felt to be normal. The flexible adult colonoscope was advanced through the anal rectal canal, all the way to the cecum. Utilization of the cecum was achieved and the ileocecal valve, the appendiceal orifice and transillumination of the anterior abdominal wall. This was an excellent study on the well-prepped bowel. There was only residual amount of particulate stool. The scope was withdrawn check the mucosa carefully. In the sigmoid colon for approximately 35 cm to approximately 15 cm from the anal verge were multiple targetoid mucosal lesions. These were most intense in the area of 25 cm. There is no evidence of stricture or diverticular disease or polyps or tumors. 2 mucosal biopsies were obtained 1 at approximately 35 cm from the anal verge and one at 25 cm from the anal verge. There was no evidence of tumor, stricture, bleeding or polyp. There was no evidence of diverticuloses. The scope was slowly withdrawn through the anal rectal canal. Complete visualization of the rectum was achieved with photodocumentation. The scope was withdrawn to the patient's anus. The patient tolerated the procedure well and was taken to the recovery area in stable condition. Surveillance colonoscopy will depend upon final pathology report.
--- NOTE | 2017-02-28 11:48 | PDOC DISCHARGE SUMMARY ---
Discharge Summary (SDC) - Discharge Final Diagnosis: History of pseudomembranous colitis Targetoid lesions of the sigmoid colon Date of Surgery: 02/28/17 Discharge Date: 02/28/17 Condition: Good Treatment or Instructions: [address] [id number] POST ENDOSCOPY DISCHARGE INSTRUCTIONS 1. Diet: Start clear liquids that a regular diet as tolerated. 2. Resume all preoperative medications. All oral anticoagulants and aspirins can be resumed 24 hours after procedure. 3. If a polypectomy was performed some bleeding per rectum may occur. This should stop within 3 days. If not, please contact the office. 4. If you had a colonoscopy you may experience some bloating and delayed return of normal bowel function for several days, your regular bowel movement pattern should resume within a week. 5. Please contact [facility] at to make an appointment with Dr. De La Paz for 1 to 3 weeks following procedure. 6. If you have any questions or concerns regarding your care,treatment plan or follow up, please contact our office. 7. Per clinical guidelines we recommend you undergo a repeat colonoscopy at that time to be determined pending pathology report . Discharge Diet: As Tolerated Discharge Activity: Activity As Tolerated Home Care Assistance: None Needed Report the Following to Your Physician Immediately: Shortness of Breath, Increase in Pain, Signs of Hyperglycemia, Fever over 101 Degrees
[2017-02-28 12:39] VITALS: BP 101/64
== END 2017-02-28 12:48 | disposition home or self-care (01) ==
LOC: END 09:47
PROVIDERS: ATTEND Surgery
PROC: 0DBE8ZX Excision of Large Intestine, Via Natural or Artificial Opening Endoscopic, Diagnostic (ICD-10-PCS; principal; 2017-02-28 10:30)
DX: K63.9 Disease of intestine, unspecified (principal); K52.9 Noninfective gastroenteritis and colitis, unspecified; Z09 Encounter for follow-up examination after completed treatment for conditions other than malignant neoplasm; Z87.19 Personal history of other diseases of the digestive system; F17.210 Nicotine dependence, cigarettes, uncomplicated; Z79.899 Other long term (current) drug therapy; Z87.891 Personal history of nicotine dependence
CPT/HCPCS: 45380; 88305 ×2; J2250; J3010; J0171; J1610; J2310; J2405; J3490

== ENCOUNTER 2017-10-15 07:01 | Emergency (ER) | payer OTHER ==
[2017-10-15] MEDS ORDERED: NORMAL SALINE 1000 ML 1,000 ML IV ONE (08:05)
[2017-10-15 08:19] LABS: ABSOLUTE EOSINOPHILS # (AUTO) 0.1 10^3/uL (0.0-0.6); ABSOLUTE LYMPHOCYTES (AUTO) 1.4 10^3/uL (0.5-4.7); ABSOLUTE MONOCYTES (AUTO) 0.6 10^3/uL (0.1-1.4); ABSOLUTE NEUT (AUTO) 6.8 10^3/uL (1.7-8.2); BASOPHILS % (AUTO) 0.4 % (0-2); EOSINOPHILS % (AUTO) 0.7 % (0-6); HEMATOCRIT 46.5 % (37.9-51.0); HEMOGLOBIN 15.7 g/dL (13.5-17.0); LYMPHOCYTES % (AUTO) 15.3 % (13-45); MEAN CORPUSCULAR HEMOGLOBIN 29.3 pg (27.0-33.4); MEAN CORPUSCULAR HGB CONC 33.8 g/dL (32.0-36.0); MEAN CORPUSCULAR VOLUME 87 fl (80-97); MONOCYTES % (AUTO) 7.1 % (3-13); PLATELET COUNT 303 10^3/uL (150-450); RED BLOOD COUNT 5.36 10^6/uL (4.35-5.55); RED CELL DISTRIBUTION WIDTH 13.2 % (11.5-14.0); SEGMENTED NEUTROPHILS % (AUTO) 76.5 % (42-78); TOTAL CELLS COUNTED % (AUTO) 100 %; WHITE BLOOD COUNT 8.9 10^3/uL (4.0-10.5)
[2017-10-15 08:39] LABS: ALANINE AMINOTRANSFERASE 30 U/L (21-72); ALBUMIN 4.7 g/dL (3.5-5.0); ALKALINE PHOSPHATASE 72 U/L (38-126); ANION GAP 13 (5-19); ASPARTATE AMINO TRANSFERASE 39 U/L (17-59); BILIRUBIN,DIRECT 0.4 mg/dL (0.0-0.4); BILIRUBIN,TOTAL 0.9 mg/dL (0.2-1.3); BLOOD UREA NITROGEN 21 mg/dL (7-20); CALCIUM 9.9 mg/dL (8.4-10.2); CARBON DIOXIDE 32 mmol/L (22-30); CHLORIDE 101 mmol/L (98-107); GLUCOSE 85 mg/dL (75-110); POTASSIUM 4.3 mmol/L (3.6-5.0); SODIUM 146.2 mmol/L (137-145); TOTAL PROTEIN 8.9 g/dL (6.3-8.2)
[2017-10-15 09:35] LABS: APPEARANCE,URINE CLEAR; BILIRUBIN,URINE NEGATIVE (NEGATIVE); COLOR,URINE YELLOW; GLUCOSE, URINE NEGATIVE (NEGATIVE); KETONES,URINE NEGATIVE (NEGATIVE); LEUKOCYTE ESTERASE,URINE NEGATIVE (NEGATIVE); NITRITE,URINE NEGATIVE (NEGATIVE); PROTEIN,URINE NEGATIVE (NEGATIVE); URINE SPECIFIC GRAVITY 1.019; UROBILINOGEN,URINE NEGATIVE mg/dL (<2.0)
--- NOTE | 2017-10-15 09:59 | RADIOLOGY REPORT (SQ) ---
EXAM DESCRIPTION: U/S ABDOMEN LIMITED W/O DOP COMPLETED DATE/TIME: 10/15/2017 9:44 am REASON FOR STUDY: llq pain, diarrhea COMPARISON: None. TECHNIQUE: Dynamic and static grayscale images acquired of the localized site of clinical concern an d recorded on PACS. Additional selected color Doppler and spectral images recorded. SITE OF CONCERN: Left lower quadrant LIMITATIONS: Portable technique in the emergency department. FINDINGS: SKIN AND SUBCUTANEOUS TISSUES: No abnormal fluid collection to suggest abscess. No pathol ogy identified. DEEP SOFT TISSUES/MUSCLES: No masses. No fluid collections. No edema. VASCULAR: No increased or decreased vascularity. No occlusions. OTHER: No other significant finding. IMPRESSION: No abscess identified. TECHNICAL DOCUMENTATION: JOB ID: [id number] [employer]- All Rights Reserved Reading location - IP/workstation name: [email or web address]
[2017-10-15 10:46] VITALS: BP 118/67
--- NOTE | 2017-10-15 11:02 | ER Document Report ---
ED GI/ - General Chief Complaint: Abdominal Pain Stated Complaint: DIARRHEA Time Seen by Provider: 10/15/17 07:45 Mode of Arrival: Ambulatory Information source: Patient Notes: Patient is a 32-year-old male who presents to the ER today for left lower quadrant pain and watery diarrhea 3 days. Patient denies any fever, chills, nausea, vomiting, blood in his diarrhea. Patient has a history of C. difficile diverticulitis with an abscess over a year ago that was admitted to this hospital. Patient states he was here for approximately a week on IV antibiotics and went home on oral antibiotics for "a whole year." Patient states that the pain was intermittent yesterday but then became more constant today. TRAVEL OUTSIDE OF THE [place] IN LAST 30 DAYS: No - Related Data Allergies/Adverse Reactions: No Known Allergies Allergy (Verified 02/28/17 09:56) Home Medications: no at home meds Past Medical History - General Information source: Patient - Social History Smoking Status: Never Smoker Frequency of alcohol use: Occasional Drug Abuse: None Family History: Reviewed & Not Pertinent Patient has suicidal ideation: No Patient has homicidal ideation: No - Past Medical History Cardiac Medical History: Denies: Hx Coronary Artery Disease, Hx Heart Attack, Hx Hypertension Pulmonary Medical History: Denies: Hx Asthma, Hx Bronchitis, Hx COPD, Hx Pneumonia Neurological Medical History: Denies: Hx Cerebrovascular Accident, Hx Seizures Renal/ Medical History: Denies: Hx Peritoneal Dialysis GI Medical History: Reports: Hx Irritable Bowel - Possible Musculoskeltal Medical History: Denies Hx Arthritis Past Surgical History: Reports: Hx Orthopedic Surgery - KNEE - Immunizations Hx Diphtheria, Pertussis, Tetanus Vaccination: Yes Review of Systems - Review of Systems Constitutional: No symptoms reported EENT: No symptoms reported Cardiovascular: No symptoms reported Respiratory: No symptoms reported Gastrointestinal: See HPI Genitourinary: No symptoms reported Male Genitourinary: No symptoms reported Musculoskeletal: No symptoms reported Skin: No symptoms reported Hematologic/Lymphatic: No symptoms reported Neurological/Psychological: No symptoms reported Physical Exam - Vital signs Vitals: Temp Pulse Resp BP Pulse Ox 99.0 F 78 16 114/70 99 10/15/17 07:13 10/15/17 07:13 10/15/17 07:13 10/15/17 07:13 10/15/17 07:13 - Notes Notes: PHYSICAL EXAMINATION: GENERAL: Well-appearing, smiling, and in no acute distress. HEAD: Atraumatic, normocephalic. EYES: Pupils equal round and reactive to light, extraocular movements intact, sclera anicteric, conjunctiva are normal. NECK: Normal range of motion, supple without lymphadenopathy LUNGS: CTAB and equal. No wheezes rales or rhonchi. HEART: Regular rate and rhythm without murmurs ABDOMEN: Soft, mild left lower quadrant tenderness. No guarding, no rebound BACK: no vertebral tenderness, normal ROM GI/: normal testicular exam, no rash, erythema, warmth Or tenderness, no CVA tenderness EXTREMITIES: Normal range of motion, no pitting edema. No cyanosis. NEUROLOGICAL: Cranial nerves grossly intact. Normal sensory/motor exams. PSYCH: Normal mood, normal affect. SKIN: Warm, Dry, normal turgor, no rashes or lesions noted nurseNini present for testicular exam Course - Re-evaluation Re-evalutation: 10/15/17 12:04 Lab work is unremarkable today including a normal white blood cell count, ultrasound of the left lower quadrant reveals no abscess or other acute pathology. CT was not repeated today as patient does have a history of diverticulitis and I will treat him with Cipro and Flagyl at this time for his left lower quadrant pain and diarrhea. - Vital Signs Vital signs: Temp Pulse Resp BP Pulse Ox 99.0 F 69 16 118/67 99 10/15/17 10:46 10/15/17 10:46 10/15/17 10:46 10/15/17 10:46 10/15/17 10:46 - Laboratory Result Diagrams: 10/15/17 07:53 10/15/17 07:53 Laboratory results interpreted by me: 10/15/17 07:53 Sodium 146.2 H Carbon Dioxide 32 H BUN 21 H Total Protein 8.9 H Discharge - Discharge Clinical Impression: LLQ pain Diverticulitis Qualifiers: Diverticulitis site: large intestine Diverticulitis bleeding: without bleeding Diverticulitis complication: without perforation or abscess Qualified Code(s): K57.32 - Diverticulitis of large intestine without perforation or abscess without bleeding Condition: Stable Disposition: HOME, SELF-CARE Instructions: Diverticulitis (OM) Additional Instructions: Return immediately for any new or worsening symptoms. Follow up with primary care provider, call tomorrow to make followup appointment. Prescriptions: Ciprofloxacin HCl [Cipro 500 mg Tablet] 500 mg PO BID #14 tablet Metronidazole [Flagyl 500 mg Tablet] 500 mg PO BID #14 tablet Oxycodone HCl/Acetaminophen [Percocet 5-325 mg Tablet] 1 - 2 tab PO Q4H PRN #15 tablet PRN Reason:
== END 2017-10-15 11:15 | disposition home or self-care (01) ==
LOC: ER 07:01
DX: K57.32 Diverticulitis of large intestine without perforation or abscess without bleeding (principal); R10.32 Left lower quadrant pain; R19.7 Diarrhea, unspecified
CPT/HCPCS: 99284; 96360; 36415; 87045; 87205; 85025; 80053; 81001; 87493; 76705; J7030

== ENCOUNTER 2019-11-03 10:36 | Emergency (ER) | payer OTHER ==
[2019-11-03 10:44] VITALS: BP 114/70
[2019-11-03] MEDS ORDERED: METHYLPREDNISOLONE INJ 40 MG/1 ML SDV IM ONE (10:51)
[2019-11-03] MEDS ORDERED: KETOROLAC TROMETHAMINE 60 MG/2 ML SDV IM ONE (10:51)
[2019-11-03] MEDS ORDERED: METHOCARBAMOL 750 MG TABLET PO ONE (10:52)
--- NOTE | 2019-11-03 10:56 | ER Document Report ---
HPI - HPI Patient complains to provider of: back pain Time Seen by Provider: 11/03/19 10:44 Pain Level: 5 Context: 34-year-old male past medical history significant for IBS occasional back strains presents to the emergency room complaining of sudden sharp spasming lower back pain that started yesterday afternoon. Progressively got worse overnight. Worse with standing and sitting. States he had some leftover Flexeril from a previous shoulder injury that he took yesterday without relief. No known history of herniated disks. Does complain of urinary frequency. But denies dysuria or penile discharge or testicular pain. Denies any loss of control over bowels or bladder, no saddle anesthesia. No other medications for symptoms. Able to walk but is painful. Denies any nausea, vomiting, no abdominal pain, no recent travel, no COVID-19 exposure. Exacerbated by: Sitting, Standing, Movement Similar symptoms previously: Yes Recently seen / treated by doctor: No - ROS ROS below otherwise negative: Yes - CONSTITUTIONAL Constitutional: DENIES: Fever - NEURO Neurology: DENIES: Headache, Weakness - CARDIOVASCULAR Cardiovascular: DENIES: Chest pain - RESPIRATORY Respiratory: DENIES: Trouble Breathing - GASTROINTESTINAL Gastrointestinal: DENIES: Abdominal Pain, Nausea, Patient vomiting - URINARY Urinary: REPORTS: Frequency. DENIES: Dysuria, Urgency - MUSCULOSKELETAL Musculoskeletal: REPORTS: Back Pain - DERM Skin Color: Normal Skin Problems: None Past Medical History - General Information source: Patient - Social History Smoking Status: Never Smoker Frequency of alcohol use: Occasional Drug Abuse: None Lives with: Family Family History: Reviewed & Not Pertinent Patient has homicidal ideation: No - Past Medical History Cardiac Medical History: Denies: Hx Coronary Artery Disease, Hx Heart Attack, Hx Hypertension Pulmonary Medical History: Denies: Hx Asthma, Hx Bronchitis, Hx COPD, Hx Pneumonia Neurological Medical History: Denies: Hx Cerebrovascular Accident, Hx Seizures Renal/ Medical History: Denies: Hx Peritoneal Dialysis GI Medical History: Reports: Hx Irritable Bowel - Possible Musculoskeletal Medical History: Denies Hx Arthritis Past Surgical History: Reports: Hx Orthopedic Surgery - KNEE - Immunizations Hx Diphtheria, Pertussis, Tetanus Vaccination: Yes Vertical Provider Document - CONSTITUTIONAL Agree With Documented VS: Yes Exam Limitations: No Limitations General Appearance: WD/WN, Moderate Distress - INFECTION CONTROL TRAVEL OUTSIDE OF THE [place] IN LAST 30 DAYS: No - HEENT HEENT: Atraumatic - NECK Neck: Normal Inspection - RESPIRATORY Respiratory: Breath Sounds Normal, No Respiratory Distress, Chest Non-Tender. negative: Rhonchi, Wheezing - CARDIOVASCULAR Cardiovascular: Regular Rate, Regular Rhythm, No Murmur Pulses: Normal: Posterior tibial, Dorsalis pedis - GI/ABDOMEN Gastrointestinal: Abdomen Soft, Abdomen Non-Tender, No Organomegaly - BACK Back: Normal Inspection. negative: CVA Tenderness-Right, CVA Tenderness-Left Notes: Nontender to palpation over the vertebral spine. Mild tenderness over the right sciatic notch. Muscle spasms are palpated in the lower lumbar region. No obvious deformities are noted. Negative straight leg raising bilaterally. - MUSCULOSKELETAL/EXTREMETIES Musculoskeletal/Extremeties: FROM, Non-Tender - NEURO Level of Consciousness: Awake, Alert, Appropriate Motor/Sensory: No Motor Deficit, No Sensory Deficit Deep Tendon Reflexes: 2+ - DERM Integumentary: Warm, Dry, No Rash Course - Re-evaluation Re-evalutation: 11/03/19 11:21 Patient is resting comfortably with decreased pain. Reviewed urinalysis with patient. No CVA tenderness on palpation. However with moderate blood noted on urinalysis we will get a CT abdomen and pelvis without contrast rule out kidney stone. Patient is agreeable for the CAT scan. 11/03/19 12:11 Patient continues to improve decreased pain ambulatory with a steady gait. Negative straight leg raising bilaterally. Reviewed CAT scan results with patient. Counseled to take medications as prescribed. Outpatient follow-up primary care physician for recheck in 2 to 3 days. Patient was given strict return to the emergency room guidelines. Return for any new or worsening symptoms. All questions were answered. Patient verbalized understanding and agrees with plan of care. - Vital Signs Vital signs: Temp Pulse Resp BP Pulse Ox 98.2 F 80 16 114/70 98 11/03/19 10:44 11/03/19 10:42 11/03/19 10:42 11/03/19 10:42 11/03/19 10:42 - Diagnostic Test Radiology reviewed: Reports reviewed Discharge - Discharge Clinical Impression: Lumbar strain Qualifiers: Encounter type: initial encounter Qualified Code(s): S39.012A - Strain of muscle, fascia and tendon of lower back, initial encounter Left-sided low back pain with sciatica Qualifiers: Chronicity: acute Sciatica laterality: sciatica of left side Qualified Code(s): M54.42 - Lumbago with sciatica, left side Condition: Stable Disposition: HOME, SELF-CARE Instructions: Low Back Pain ([facility]), Muscle Strain ([facility]), Sciatica ([facility]) Additional Instructions: You have been seen in the Emergency Department (ED) today for back pain. Your workup and exam have not shown any acute abnormalities and you are likely suffering from muscle strain or possible problems with your discs, but there is no treatment that will fix your symptoms at this time. Please take the naproxen that has been prescribed as directed. You should also purchase a local lidocaine cream such as "aspercreme with lidocaine" and use per bottle instructions to the affected area. Apply heat to the area as often as you are able. Continue to keep active and avoid prolonged periods of bed rest. Please follow up with your doctor as soon as possible regarding today's ED visit and your back pain. Return to the ED for worsening back pain, fever, weakness or numbness of either leg, or if you develop either (1) an inability to urinate or have bowel movements, or (2) loss of your ability to control your bathroom functions (if you start having "accidents"), or if you develop other new symptoms that concern you.concern you. Prescriptions: Prednisone [Deltasone 20 mg Tablet] See Protocol PO DAILY 9 Days #18 tablet Methocarbamol [Robaxin 750 mg Tablet] 750 mg PO Q6H PRN #20 tablet PRN Reason: Referrals: [facility] [Primary [facility]] - Follow up as needed
[2019-11-03 11:17] LABS: APPEARANCE,URINE CLEAR; BILIRUBIN,URINE NEGATIVE (NEGATIVE); COLOR,URINE YELLOW; GLUCOSE, URINE NEGATIVE (NEGATIVE); KETONES,URINE NEGATIVE (NEGATIVE); LEUKOCYTE ESTERASE,URINE NEGATIVE (NEGATIVE); NITRITE,URINE NEGATIVE (NEGATIVE); PROTEIN,URINE NEGATIVE (NEGATIVE); URINE SPECIFIC GRAVITY 1.021; UROBILINOGEN,URINE NEGATIVE mg/dL (<2.0)
--- NOTE | 2019-11-03 12:05 | RADIOLOGY REPORT (SQ) ---
EXAM DESCRIPTION: CT ABD/PELVIS NO ORAL OR IV IMAGES COMPLETED DATE/TIME: 11/03/2019 11:51 am REASON FOR STUDY: back pain COMPARISON: 01/22/2017. TECHNIQUE: CT scan of the abdomen and pelvis performed without intravenous or oral contrast. Images reviewed with lung, soft tissue, and bone windows. Reconstructed coronal and sagittal MPR images revi ewed. All images stored on PACS. All CT scanners at this facility use dose modulation, iterative reconstruction, and/or weight based d osing when appropriate to reduce radiation dose to as low as reasonably achievable (ALARA). [facility]: Dose Right [facility]: CareDose [facility]: Dose Right [facility]: Teradose 4D [facility]: [employer] RADIATION DOSE: CT Rad equipment meets quality standard of care and radiation dose reduction techniq ues were employed. CTDIvol: 6.7 mGy. DLP: 360 mGy-cm.mGy. LIMITATIONS: None. FINDINGS: LOWER CHEST: No significant findings. No nodules or infiltrates. NON-CONTRASTED LIVER, SPLEEN, ADRENALS: Evaluation limited by lack of IV contrast. No identified sign ificant masses. PANCREAS: No masses. No peripancreatic inflammatory changes. GALLBLADDER: No identified stones by CT criteria. No inflammatory changes to suggest cholecystitis. RIGHT KIDNEY AND URETER: No suspicious masses. Assessment limited by lack of IV contrast. No signif icant calcifications. No hydronephrosis or hydroureter. LEFT KIDNEY AND URETER: No suspicious masses. Assessment limited by lack of IV contrast. No signifi cant calcifications. No hydronephrosis or hydroureter. AORTA AND RETROPERITONEUM: No aneurysm. No retroperitoneal masses or adenopathy. BOWEL AND PERITONEAL CAVITY: Colonic diverticuli. No obvious masses or inflammatory changes. No free fluid. APPENDIX: Normal. PELVIS, BLADDER, AND ABDOMINAL WALL:No abnormal masses. No free fluid. Bladder normal. BONES: No significant findings. OTHER: No other significant finding. IMPRESSION: SCATTERED COLONIC DIVERTICULI. NO CT FINDINGS OF DIVERTICULITIS. NO SIGNIFICANT OR ACU TE PROCESS IN THE ABDOMEN OR PELVIS. COMMENT: Quality ID # [id number]: Final reports with documentation of one or more dose reduction techniques (e.g., Automated exposure control, adjustment of the mA and/or kV according to patient size, use of iterative reconstruction technique) TECHNICAL DOCUMENTATION: JOB ID: [id number] [employer]- All Rights Reserved Reading location - IP/workstation name: [email or web address]
== END 2019-11-03 12:29 | disposition home or self-care (01) ==
LOC: ER 10:36
DX: S39.012A Strain of muscle, fascia and tendon of lower back, initial encounter (principal); X58.XXXA Exposure to other specified factors, initial encounter; M62.830 Muscle spasm of back; M54.42 Lumbago with sciatica, left side; R35.0 Frequency of micturition; R31.9 Hematuria, unspecified
CPT/HCPCS: 99284; 96372; 81001; 74176; J1885; J3490; J2920